=== PATIENT | male | born 1980 | race Two or more races ===

== ENCOUNTER 2023-03-24 16:01 | Emergency (ER) | payer OTHER ==
[~2023-03-24] VITALS: Ht 172.7 cm; Wt 72.8 kg
[2023-03-24 16:11] VITALS: BP 127/75; PULSE 60; RESP 16; O2SAT 95
[2023-03-24] MEDS ORDERED: IBUP1TAB5 PO (17:09)
[2023-03-24] MEDS ORDERED: MUPI2OIN2 EX (17:09)
[2023-03-24] MEDS ORDERED: AUG875T PO (17:09)
[2023-03-24] MEDS ORDERED: AMOXICILLIN/CLAVUL 875 MG TAB PO ONE (17:15)
[2023-03-24] MEDS: TETANUS-DIPTH-ACEL PERTUSSIS 0.5ML SYR Tdap IM ONE ×2 (17:15→17:29)
[2023-03-24] MEDS: HYDROcodone-ACET 5/325MG TAB PO ONE ×2 (17:15→17:26)
[2023-03-24] MEDS ORDERED: NEOMYCIN-BACITRACIN-POLYM UNITDOSE PKG TOP OINT TOP ONE (17:15)
== END 2023-03-24 17:52 | disposition home or self-care (01) ==
LOC: ER 16:01
DX: S61.234A Puncture wound without foreign body of right ring finger without damage to nail, initial encounter (principal); S61.255A Open bite of left ring finger without damage to nail, initial encounter; W55.01XA Bitten by cat, initial encounter; Y93.89 Activity, other specified; Y92.89 Other specified places as the place of occurrence of the external cause; Y99.8 Other external cause status
CPT/HCPCS: 90715